=== PATIENT | female | born 1940 | race Caucasian/White ===

== ENCOUNTER → 2016-08-15 | Outpatient (CLI) | payer OTHER ==
[~2016-08-15] MED LIST: ACET500C PO; ADVA230A INH; ALBU83IN INH; AMLO25TA PO; ASPI81TA85 PO; ATOR1TAB19 PO; CALC600T7 PO; DITR1TAB PO; K-TA10TA2 PO; LASI40TA PO; MOME50SP; ONDA4TAB6 PO; PANT40TA2 PO; SALI0.653; SPIR1CAP INH; VICO5TAB16 PO
== END ==
LOC: M RAD 10:03
PROVIDERS: ATTEND Internal Medicine Endocrinology, Diabetes & Metabolism
DX: E05.00 Thyrotoxicosis with diffuse goiter without thyrotoxic crisis or storm (principal)
CPT/HCPCS: 79005; A9517

== ENCOUNTER → 2019-08-26 | Outpatient (REF) | payer MEDICARE, OTHER ==
[~2019-08-26] MED LIST changes: -LASI40TA PO; +LASI40TA9 PO; -PANT40TA2 PO; +PANT40TA3 PO; +SALI0.6528; -SALI0.653; -VICO5TAB16 PO; +VICO5TAB17 PO
[2019-08-26 15:38] LABS: APPEARANCE, URINE CLEAR (CLEAR); BACTERIA, URINE AUTO NEGATIVE (NEGATIVE); BILIRUBIN, URINE AUTO NEGATIVE (NEGATIVE); BLOOD, URINE BLOOD NEGATIVE (NEGATIVE); COLOR, URINE YELLOW (YELLOW); GLUCOSE, URINE (UA) AUTO NEGATIVE (NEGATIVE); KETONE, URINE AUTO NEGATIVE (NEGATIVE); LEUKOCYTE ESTERASE, URINE AUTO TRACE (NEGATIVE); NITRITE, URINE AUTO NEGATIVE (NEGATIVE); PROTEIN, URINE AUTO NEGATIVE (NEGATIVE); RBC, URINE AUTO 1 /HPF (0-3); SPECIFIC GRAVITY URINE AUTO 1.009 (1.002-1.035); SQUAMOUS EPITHELIAL CELL UR AU 1 /HPF (0-6); UROBILINOGEN, URINE AUTO 0.2 mg/dL (0.0-2.0); WBC, URINE AUTO 1 /HPF (0-3)
== END ==
LOC: M SMT 13:28
PROVIDERS: ATTEND Nurse Practitioner Family
DX: R31.29 Other microscopic hematuria (principal)
CPT/HCPCS: 81001; 87086; G0463